=== PATIENT | female | born 1990 | race Caucasian/White ===

== ENCOUNTER 2022-06-04 15:10 | Outpatient (CLI) | payer MEDICAID, SELFPAY ==
--- NOTE | 2022-06-04 | TONS_PTH ---
PATIENT: ELIZABETH XAVIER LOC: [facility] U#:[id number] AGE/SX: 31/F ROOM: RE06/04/[address]: Dr. Trevor Dyer MD : 1990 BED: DIS: 06/04/2022 SPEC #: [id number] RECD: 06/04/22 14:59 STATUS: BARBARA NGUYEN #: [id number] SCARLET: 06/04/22 00:[address]: Trevor Dyer DEPT: SURGICAL PATHOLOGY RECD BY: Tk Workman ENTERED: 06/05/22 08:33 SP TYPE: TONSILS OTHR DR: MATHEUS Tissues: Tonsil, NOS Procedures: Surgery Specimen Level III HEADER OPERATION: Tonsillectomy PRE-OP DIAGNOSIS: Chronic tonsillitis TISSUE SUBMITTED: Bilateral tonsils, pin on right MICROSCOPIC DIAGNOSIS Right tonsil, tonsillectomy: Benign lymphoid follicular hyperplasia, consistent with chronic tonsillitis. Organisms consistent with actinomyces. Left tonsil, tonsillectomy: Benign lymphoid follicular hyperplasia, consistent with chronic tonsillitis. AM:neida 06/06/2022 MICROSCOPIC DESCRIPTION Slides are reviewed. GROSS DESCRIPTION Received is one container labeled with the patient's name and designated tonsils - pin on right are two tonsils that in aggregate weigh 5.8 gm. The right tonsil has a pin on it and measures 2.5 x 1.5 x 1.5 cm. The left tonsil measures 3 x 2 x 1.5 cm. Both tonsils are similar in appearance. The external surfaces are pink-florentino, smooth, glistening and somewhat lobulated. Focally they are hemorrhagic, granular and bear cautery artifact. Serial cross sections through the tonsils reveal normal tonsillar architecture. Sections are submitted in two cassettes as follows: 1 - right tonsil, 2 - left tonsil. / SJ:neida 06/05/2022 TC:5 CPT: 05009 x2
== END 2022-06-04 23:59 | disposition home or self-care (01) ==
LOC: LABSPEC 15:26
PROVIDERS: Visit Provider Otolaryngology
DX: J35.01 Chronic tonsillitis (principal)
CPT/HCPCS: 88304